=== PATIENT | female | born 1935 | race Caucasian/White ===

== ENCOUNTER → 2017-12-14 | Outpatient (CLI) | payer MEDICARE ==
[2017-12-14 13:48] LABS: HEMATOCRIT 41.1 % (37.0-47.0); HEMOGLOBIN 13.5 gm/dL (12.0-15.0); MCH 29.5 pg (26.0-34.0); MCHC 32.9 g/dL (28.0-37.0); MCV 89.5 fL (80.0-100.0); MPV 9.2 fl. (7.2-11.1); RBC 4.59 mil/uL (4.20-5.00); RDW-CV 14.4 % (10.5-14.5); WBC 6.8 thou/uL (4.0-11.0)
[2017-12-14 14:02] LABS: ALBUMIN 3.5 g/dL (3.4-5.0); ALKALINE PHOSPHATASE 103 U/L (46-116); ANION GAP 10 mmol/L (7-16); BUN 16 mg/dL (7-18); CALCIUM 8.8 mg/dL (8.5-10.1); CHLORIDE 102 mmol/L (98-107); CHOLESTEROL 184 mg/dL (<200); CO2 28 mmol/L (21-32); CREATININE 0.9 mg/dL (0.6-1.3); GLUCOSE 104 mg/dL (70-99); HDL CHOLESTEROL 56 mg/dL (>40); LDL CHOLESTEROL 113 mg/dL (<100); POTASSIUM 3.9 mmol/L (3.5-5.1); SGOT 24 U/L (15-37); SGPT 18 U/L (30-65); SODIUM 140 mmol/L (136-145); TC:HDL 3.3 Ratio (Not establshd); TOTAL BILIRUBIN 1.2 mg/dL (<0.1-1.0); TOTAL PROTEIN 7.2 g/dL (6.4-8.2); TRIGLYCERIDE 75 mg/dL (<150); VLDL 15 mg/dL (<40)
[2017-12-14 14:03] LABS: SERUM ASSESSMENT Clear
[2017-12-15 02:11] LABS: GLYCOHEMOGLOBIN (HGB A1C) 5.8 % (4.8-5.6)
== END ==
LOC: M.LAB 12:38
PROVIDERS: General Practice
DX: I10 Essential (primary) hypertension (principal); E11.9 Type 2 diabetes mellitus without complications; E78.5 Hyperlipidemia, unspecified; E03.9 Hypothyroidism, unspecified; G70.00 Myasthenia gravis without (acute) exacerbation; E55.9 Vitamin D deficiency, unspecified

== ENCOUNTER → 2018-03-23 | Outpatient (CLI) | payer MEDICARE ==
--- NOTE | 2018-03-26 09:28 | PF ---
[address] [address] PULMONARY FUNCTION REPORT Name: SULEMA DEVLIN Room: [facility]#: [id number] Admission: 03/23/18 Attend Phys: Tin Becerra MD Discharge: Date of : 39 Report #: [id number] THIS REPORT FOR: //name// CC: Tin Bearden PULMONARY FUNCTION TEST. SPIROMETRY: The FEV1/FVC ratio was 68%. The FEV1 was 1 liter or 57% predicted. The FVC 1.47 liters or 62% predicted. No positive bronchodilator response. LUNG VOLUMES: Total lung capacity was 2.86 liters or 63% predicted. DLCO was 40% of predicted. 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 <ELECTRONICALLY SIGNED> By: Yuliana Werner MD 03/26/18 0928 [id number] Werner MD /nt
== END ==
LOC: M.PUL 10:09
DX: J44.9 Chronic obstructive pulmonary disease, unspecified (principal); G70.00 Myasthenia gravis without (acute) exacerbation; I48.91 Unspecified atrial fibrillation; E03.9 Hypothyroidism, unspecified; I10 Essential (primary) hypertension; E11.9 Type 2 diabetes mellitus without complications; E78.5 Hyperlipidemia, unspecified

== ENCOUNTER → 2018-04-01 | Outpatient (CLI) | payer MEDICARE | LOC: M.LAB 10:10 | DX: I48.91 Unspecified atrial fibrillation (principal); E03.9 Hypothyroidism, unspecified; G70.00 Myasthenia gravis without (acute) exacerbation; E11.9 Type 2 diabetes mellitus without complications; I10 Essential (primary) hypertension; E78.5 Hyperlipidemia, unspecified ==

== ENCOUNTER → 2018-07-06 | Outpatient (CLI) | payer MEDICARE ==
--- NOTE | 2018-07-09 11:13 | PF ---
[address] [address] PULMONARY FUNCTION REPORT Name: SULEMA DEVLIN Room: [facility]#: [id number] Admission: 07/06/18 Attend Phys: Tin Becerra MD Discharge: Date of : 39 Report #: [id number] THIS REPORT FOR: //name// CC: Tin Bearden INTERPRETATION: Expiratory flow rates are reduced. After inhaled bronchodilator, there is an improvement in the expiratory flow rates. The FEV1 improved from 0.85-0.99 which was a 16% improvement from baseline. There was more of a dramatic improvement in the mid flows after inhaled bronchodilator. Lung volumes measured by body plethysmography are reduced. Total lung capacity was 68% of the predicted value. Diffusion capacity was severely reduced. IMPRESSION: 1. Spirometry consistent with restrictive obstructive component. There is moderate obstruction. 2. Lung volumes with a decreased total lung capacity and a reduced forced vital capacity consistent with a [id number] severe restrictive component. 3. Severe reduction in the diffusion capacity. <ELECTRONICALLY SIGNED> By: Nile Gomez MD 07/09/18 1113 [id number] Gomez MD /nt
== END ==
LOC: M.PUL 09:30
DX: G70.00 Myasthenia gravis without (acute) exacerbation (principal); I35.8 Other nonrheumatic aortic valve disorders; R53.82 Chronic fatigue, unspecified